=== PATIENT | male | born 1955 | race Asian ===

== ENCOUNTER 2021-12-03 14:17 | Inpatient (IN) | payer OTHER ==
[~2021-12-03] VITALS: Ht 172.7 cm; Wt 68.8 kg
[2021-12-03 15:09] LABS: BASOPHILS % (AUTO) 1.5 % (0.0-2.0); HEMATOCRIT 41.3 % (41-53); LYMPHOCYTES # (AUTO) 2.3 K/uL (1.0-4.8); LYMPHOCYTES % (AUTO) 40.6 % (22.0-44.0); MEAN CORPUSCULAR HEMOGLOBIN 29.9 pg (26.0-34.0); MEAN CORPUSCULAR VOLUME 88 fL (80-100); MONOCYTES # (AUTO) 0.4 K/uL (0.1-1.0); MONOCYTES % (AUTO) 7.8 % (2.0-9.0); NEUTROPHILS # (AUTO) 2.5 K/uL (1.8-7.7); NEUTROPHILS % (AUTO) 44.1 % (40.0-70.0); PLATELET COUNT (AUTO) 220 K/uL (150-450); RED CELL DISTRIBUTION WIDTH 13.2 % (11.5-14.5)
[2021-12-03 15:14] LABS: ANION GAP 7 mmol/L (8-16); CALCIUM, TOTAL 8.6 mg/dL (8.8-10.5); CARBON DIOXIDE 29 mmol/L (22-29); CHLORIDE 102 mmol/L (98-107); CREATININE 0.83 mg/dL (0.60-1.30); GLOMERULAR FILTR. RATE CALC > 60 mL/min (>60); GLUCOSE,RANDOM 286 mg/dL (70-110); POTASSIUM 3.7 mmol/L (3.5-5.1); SODIUM SERUM 138 mmol/L (136-145); UREA NITROGEN, BLOOD 13 mg/dL (7-18)
[2021-12-03 15:21] LABS: ALANINE AMINOTRANSFERASE 19 U/L (12-78); ALBUMIN 3.4 g/dL (3.4-5.0); ALKALINE PHOSPHATASE 84 U/L (46-116); ASPARTATE AMINOTRANSFERASE 13 U/L (15-37); BILIRUBIN,TOTAL 0.7 mg/dL (0.1-1.0); TOTAL PROTEIN, SERUM 6.8 g/dL (6.4-8.2)
[2021-12-03 15:34] LABS: ACETONE,BLOOD NEGATIVE (NEGATIVE)
[2021-12-03 15:59] LABS: C-REACTIVE PROTEIN QUANT < 0.05 mg/dL (0.00-0.30)
[2021-12-03] MEDS ORDERED: SODIUM CHLORIDE 0.9% 100 ML ONE (16:23)
[2021-12-03] MEDS ORDERED: IOHEXOL 350 MG/ML 75 ML VIAL ONE (16:24)
[2021-12-03 16:41] LABS: ERYTHROCYTE SEDIMENTATION RATE 20 MM/HR (0-15)
[2021-12-03] MEDS ORDERED: ASPIRIN 325 MG TABLET PO ONE (18:30)
[2021-12-03] MEDS ORDERED: CLOPIDOGREL BISULFATE 75 MG TABLET PO ONE (18:30)
[2021-12-03] MEDS ORDERED: ONDANSETRON HCL 4 MG/2 ML VIAL IVP PRN (18:45)
[2021-12-03] MEDS ORDERED: DEXTROSE 50%-WATER 25 GM/50 ML SYRINGE IVP PRN (18:45)
[2021-12-03] MEDS ORDERED: ACETAMINOPHEN 325 MG TABLET PO PRN (18:45)
[2021-12-03 18:47] LABS: APPEARANCE,URINE CLEAR (CLEAR); BILIRUBIN,URINE NEGATIVE (NEGATIVE); GLUCOSE, URINE (UA) 300-500 mg/dL (NEGATIVE); KETONES,URINE NEGATIVE (NEGATIVE); LEUKOCYTE ESTERASE ,URINE NEGATIVE Leu/uL (NEGATIVE); NITRATE,URINE NEGATIVE (NEGATIVE); OCCULT BLOOD,URINE NEGATIVE (NEGATIVE); PROTEIN,URINE NEGATIVE (NEGATIVE); SPECIFIC GRAVITIY, URINE 1.011 (1.003-1.030); UROBILINOGEN,URINE <=1.0 mg/dL (<=1.0)
[2021-12-03 18:58] LABS: BACTERIA,URINE None Seen /HPF (None Seen); RBC,URINE None Seen /HPF (0-2); SQUAMOUS EPITHELIAL CELL,UR Few /LPF (None Seen)
[2021-12-03] MEDS: ATORVASTATIN CALCIUM 40 MG TABLET PO SCH (20:29)
[2021-12-03 20:41] LABS: GLUCOSE,POINT OF CARE 309 MG/DL (70-110)
[2021-12-03 20:47] LABS: COVID AG,FIA SOURCE NASAL SWAB
[2021-12-03] MEDS ORDERED: INSULIN GLARGINE,HUM.REC.ANLOG 100 UNITS/ML SQ SCH (21:00)
[2021-12-03] MEDS: INSULIN LISPRO 100 UNITS/ML SQ PRN (21:03)
[2021-12-03 21:20] VITALS: BP 161/86
[2021-12-03] MEDS: HEPARIN SODIUM,PORCINE 5,000 UNITS/ML VIAL SQ SCH (23:52)
[2021-12-04] VITALS (7 sets, daily range): BP systolic 135–162; BP diastolic 75–102
[2021-12-04 01:46] LABS: GLUCOMETER DEV NAME(LOC) 5S.1B; GLUCOSE,POINT OF CARE 251 MG/DL (70-110)
[2021-12-04] MEDS: METOPROLOL TARTRATE 25 MG TABLET PO SCH ×2 (05:36→20:29)
[2021-12-04] MEDS: INSULIN LISPRO 100 UNITS/ML SQ PRN ×4 (05:42→20:29)
[2021-12-04] MEDS: ASPIRIN 81 MG CHEWABLE TABLET PO SCH (08:52)
[2021-12-04] MEDS: CLOPIDOGREL BISULFATE 75 MG TABLET PO SCH (08:53)
[2021-12-04] MEDS: HEPARIN SODIUM,PORCINE 5,000 UNITS/ML VIAL SQ SCH ×2 (08:53→16:27)
[2021-12-04 11:46] LABS: GLUCOMETER DEV NAME(LOC) 5S.2B; GLUCOSE,POINT OF CARE 265 MG/DL (70-110)
[2021-12-04 17:21] LABS: GLUCOMETER DEV NAME(LOC) 5S.2B; GLUCOSE,POINT OF CARE 193 MG/DL (70-110)
[2021-12-04 17:56] LABS: GLUCOMETER DEV NAME(LOC) 5S.1B; GLUCOSE,POINT OF CARE 181 MG/DL (70-110)
[2021-12-04] MEDS: ATORVASTATIN CALCIUM 40 MG TABLET PO SCH (20:29)
[2021-12-04] MEDS ORDERED: INSULIN GLARGINE,HUM.REC.ANLOG 100 UNITS/ML SQ SCH (21:00)
[2021-12-05] MEDS: HEPARIN SODIUM,PORCINE 5,000 UNITS/ML VIAL SQ SCH ×3 (00:16→16:48)
[2021-12-05 00:56] VITALS: BP 145/89
[2021-12-05 04:28] VITALS: BP 139/86
[2021-12-05 06:02] LABS: BASOPHILS % (AUTO) 0.9 % (0.0-2.0); EOSINOPHILS % (AUTO) 4.9 % (1.0-6.0); HEMATOCRIT 45.6 % (41-53); HEMOGLOBIN 15.4 g/dL (13.5-17.5); LYMPHOCYTES # (AUTO) 3.6 K/uL (1.0-4.8); LYMPHOCYTES % (AUTO) 45.8 % (22.0-44.0); MEAN CORPUSCULAR HEMOGLOBIN 29.7 pg (26.0-34.0); MEAN CORPUSCULAR HGB CONC 33.9 G/dL (31.0-37.0); MEAN CORPUSCULAR VOLUME 88 fL (80-100); MONOCYTES # (AUTO) 0.5 K/uL (0.1-1.0); NEUTROPHILS # (AUTO) 3.2 K/uL (1.8-7.7); NEUTROPHILS % (AUTO) 41.4 % (40.0-70.0); PLATELET COUNT (AUTO) 247 K/uL (150-450); RED BLOOD CELL COUNT(AUTO) 5.21 MIL/uL (4.50-5.90); RED CELL DISTRIBUTION WIDTH 13.5 % (11.5-14.5)
[2021-12-05] MEDS: INSULIN LISPRO 100 UNITS/ML SQ PRN ×3 (06:11→16:49)
[2021-12-05 06:17] LABS: ANION GAP 7 mmol/L (8-16); CALCIUM, TOTAL 9.6 mg/dL (8.8-10.5); CARBON DIOXIDE 29 mmol/L (22-29); CHLORIDE 105 mmol/L (98-107); CREATININE 0.82 mg/dL (0.60-1.30); GLOMERULAR FILTR. RATE CALC > 60 mL/min (>60); GLUCOSE,RANDOM 195 mg/dL (70-110); POTASSIUM 3.8 mmol/L (3.5-5.1); SODIUM SERUM 141 mmol/L (136-145); UREA NITROGEN, BLOOD 12 mg/dL (7-18)
[2021-12-05 08:21] LABS: GLUCOMETER DEV NAME(LOC) 5S.2B; GLUCOSE,POINT OF CARE 252 MG/DL (70-110)
[2021-12-05 08:21] LABS: GLUCOMETER DEV NAME(LOC) 5S.2B; GLUCOSE,POINT OF CARE 189 MG/DL (70-110)
[2021-12-05 08:24] VITALS: BP 152/89
[2021-12-05] MEDS: CLOPIDOGREL BISULFATE 75 MG TABLET PO SCH (08:47)
[2021-12-05] MEDS: ASPIRIN 81 MG CHEWABLE TABLET PO SCH (08:47)
[2021-12-05] MEDS: METOPROLOL TARTRATE 25 MG TABLET PO SCH (08:47)
[2021-12-05] MEDS ORDERED: ATOR40TA71 PO (10:56)
[2021-12-05] MEDS ORDERED: METO25 PO (10:56)
[2021-12-05] MEDS ORDERED: INSLAN SQ (10:56)
[2021-12-05] MEDS ORDERED: ASPI81 PO (10:56)
[2021-12-05] MEDS ORDERED: CLOP75TA60 PO (10:56)
[2021-12-05 11:50] VITALS: BP 144/89
[2021-12-05 12:16] LABS: GLUCOMETER DEV NAME(LOC) 5S.1B; GLUCOSE,POINT OF CARE 217 MG/DL (70-110)
[2021-12-05 16:29] VITALS: BP 156/86
[2021-12-05 17:01] LABS: GLUCOMETER DEV NAME(LOC) 5S.2B; GLUCOSE,POINT OF CARE 270 MG/DL (70-110)
[2021-12-05 20:38] VITALS: BP 104/64
== END 2021-12-05 21:25 | disposition home or self-care (01) | DRG 123 ==
LOC: EMS 14:20 → 5N 20:00
PROVIDERS: ADMIT Internal Medicine; ATTEND Internal Medicine
DX: H53.2 Diplopia (principal); E11.65 Type 2 diabetes mellitus with hyperglycemia; I10 Essential (primary) hypertension; Z20.822 Contact with and (suspected) exposure to COVID-19; I65.09 Occlusion and stenosis of unspecified vertebral artery; Z91.19 Patient's noncompliance with other medical treatment and regimen
CPT/HCPCS: 70496; 70498; 70551; 71045; 80048; 80053; 81001; 82009; 82962; 83036; 83735; 84484; 85025; 85651; 86140; 93005; 93880; 97161; 97165; 97535; 99173; 99285; J1644; J1815; J7050; Q9967; 36415-L1; 36415-TC